=== PATIENT | female | born 1985 | race Caucasian/White ===

== ENCOUNTER → 2017-05-22 10:58 | Outpatient (CLI) | payer OTHER, MEDICAID, SELFPAY ==
[2017-05-22 12:21] LABS: Absolute Lymphocyte Count 1.22 X10^3/ul (0.83-4.51); Basophil# 0.01 X10^3/uL; Basophil% 0.2 % (0-1); Eosinophil# 0.03 X10^3/uL; Eosinophils% 0.7 % (0-5); Hematocrit 38.2 % (37-47); Hemoglobin 13.1 g/dl (12.0-15.0); Lymphocyte # 1.22 X10^3/ul (4.0); Lymphocyte % 26.9 % (19-41); Mean Corp Hgb Conc 34.3 g/gl (32-36); Mean Corpuscular Hgb 27.9 pg (27.0-32.0); Mean Corpuscular Volume 81.3 fL (81-99); Mean Platelet Vol. 10.5 fl (6.2-12.0); Monocyte# 0.28 X10^3/uL; Monocyte% 6.2 % (0-10); Neutrophil # 2.98 X10^3/uL (2.7-7.7); Neutrophil % 65.8 % (47-70); Platelet Count 246 K/mm3 (150-450); RBC Distribution Width CV 13.8 % (11.6-14.6); RBC Distribution Width SD 40.2 fl (35.1-43.9); White Blood Count 4.5 K/mm3 (4.4-11.0)
[2017-05-22 12:24] LABS: POSITIVE COUNT NO; POSITIVE DIFFERENTIAL NO; POSITIVE MORPHOLOGY NO
[2017-05-22 12:46] LABS: ALB/GLOB Ratio 0.7 RATIO (0.9-2.4); AST(SGOT) 17 U/L (15-37); Alanine Aminotransfer ALT/SGPT 28 U/L (13-56); Alkaline Phosphatase 70 U/L (45-117); Anion Gap 9 (5-15); BUN 9 mg/dL (7-18); BUN/Creat Ratio 12.8 RATIO (10-20); Calcium,Total 8.4 mg/dL (8.5-10.1); Chloride 109 mmol/L (98-107); EST Glomerular Filtration Rate 103 mL/min (>60); Est Glom Filt Rate - Afr Amer 124 mL/min (>60); Globulin 4.4 g/dL (2.2-4.2); Glucose 88 mg/dL (70-110); Glucose Challenge Gest 1H 50g 88 mg/dL (70-140); Potassium 3.4 mmol/L (3.5-5.1); Protein, Total 7.4 g/dL (6.4-8.2); Sodium Level 141 mmol/L (136-145); T4 Free Direct 1.13 ng/dL (0.76-1.46); Thyroid Stim Hormone (TSH) 0.58 uIU/mL (0.358-3.74)
[2017-05-22 12:55] LABS: Rubella IgG 62.1 IU/mL
[2017-05-22 22:34] LABS: Chlamydia Trachomatis by PCR Negative (Negative); Neisserai gonorrhoeae by PCR Negative (Negative); Probe Check PASS; Sample Adequacy Control PASS; Specimen Processing Control PASS
[2017-05-23 12:08] LABS: Thyroid Peroxidase AB 12 IU/mL (0-34)
[2017-05-23 16:20] LABS: HEPATITIS B SURFACE AG Negative (Negative); Thyroglobulin Antibody < 1.0 IU/mL (0.0-0.9)
[2017-05-26 03:55] LABS: Rapid Plasmin Reagin (RPR) NONREACTIVE (NONREACTIVE)
== END ==
PROVIDERS: Family Provider Family Medicine; PCP Family Medicine; Visit Provider Obstetrics & Gynecology
DX: O09.291 Supervision of pregnancy with other poor reproductive or obstetric history, first trimester (principal); O99.281 Endocrine, nutritional and metabolic diseases complicating pregnancy, first trimester; E01.0 Iodine-deficiency related diffuse (endemic) goiter; Z3A.00 Weeks of gestation of pregnancy not specified
CPT/HCPCS: 36415; 80053; 82570; 82950; 84156; 84439; 84443; 84481; 85025; 86376; 86592; 86762; 86800; 86850; 86900; 87086; 87088; 87340; 87491; 87591

== ENCOUNTER → 2017-05-23 15:19 | Outpatient (CLI) | payer OTHER, MEDICAID, SELFPAY | PROVIDERS: Family Provider Family Medicine; PCP Family Medicine; Visit Provider Obstetrics & Gynecology | DX: Z12.4 Encounter for screening for malignant neoplasm of cervix (principal) ==

== ENCOUNTER → 2017-06-05 13:27 | Outpatient (CLI) | payer OTHER, MEDICAID, SELFPAY | PROVIDERS: Family Provider Family Medicine; PCP Family Medicine | DX: Z36.82 Encounter for antenatal screening for nuchal translucency (principal) | CPT/HCPCS: 36415 ==

== ENCOUNTER → 2017-06-19 17:57 | Outpatient (CLI) | payer OTHER, MEDICAID, SELFPAY ==
[2017-06-19 18:21] LABS: Protein:Creat Ratio 66 mg/g CRE (0-200)
== END ==
PROVIDERS: Family Provider Family Medicine; PCP Family Medicine; Visit Provider Obstetrics & Gynecology
DX: Z87.59 Personal history of other complications of pregnancy, childbirth and the puerperium (principal)
CPT/HCPCS: 82570; 84156

== ENCOUNTER → 2017-07-17 | Outpatient (CLI) | payer OTHER, MEDICAID, SELFPAY ==
[2017-07-17 14:49] LABS: HIV - WCH Non-Reactive (Nonreactive)
[2017-07-17 21:53] LABS: Protein, Urine (Random) 12.3 mg/dL (<11.9); Protein:Creat Ratio 53 mg/g CRE (0-200)
== END | disposition home or self-care (01) ==
PROVIDERS: Obstetrics & Gynecology; Family Provider Family Medicine; PCP Family Medicine
DX: O16.9 Unspecified maternal hypertension, unspecified trimester (principal)
CPT/HCPCS: 36415; 82570; 84156; 86703

== ENCOUNTER → 2017-07-21 12:02 | Outpatient (CLI) | payer OTHER, MEDICAID, SELFPAY ==
--- NOTE | 2017-07-21 12:03 | US_ITS ---
STUDY: SECOND AND THIRD TRIMESTER OBSTETRICAL ULTRASOUND REASON FOR EXAM: Female, 31 years old. Anatomy screen LMP: TECHNIQUE: Transabdominal PRIOR ULTRASOUND: None. FINDINGS: There is a single intrauterine fetus. The fetus is in a cephalic presentation. There is demonstrated cardiac activity with a heart rate of 142 bpm. There is a normal amniotic fluid volume. The largest amniotic fluid pocket measures 6.1 cm. The placenta is posterior in location and is not low lying. There are Grade 0 placental changes. The cervix measures 59 mm in length. The bilateral adnexal regions are normal. BIOMETRY: BPD: 47mm: 20 weeks, 2 days HC: 175mm: 20 weeks, 1 days AC: 155mm: 20 weeks, 5 days FL: 32mm: 19 weeks, 6 days CI: 79 FL/BPD: 67 FL/HC: FL/AC: 20 HC/AC: 1.13 age by current US: 20 weeks, 2 days. EDITH by current US: 8.15.18. Estimated weight: 340 grams, +/- 50 grams, 67 %. Age by LMP: 19 weeks, 6 days. EDITH by LMP: 8.18.18. ANATOMY: Gender: Male Cranium: Normal lateral ventricles. Normal choroid plexus. Normal cerebellum. Normal cisterna magna. Normal face, nose and lips. Chest: Normal 4-chamber heart. Abdomen/Pelvis: Normal diaphragm. Normal stomach. Normal abdominal wall. Normal cord insertion. Normal 3 vessel cord. Normal kidneys. Normal bladder. Spine: Normal cervical spine. Normal thoracic spine. Normal lumbar spine. Normal sacrum. Extremities: Normal bilateral upper extremities. Normal bilateral lower extremities. US/OB Anatomy Scan IMPRESSION: There is a single live intrauterine with a heart rate of 142 bpm. age by current US: 20 weeks, 2 days. EDITH by current US: 8.15.18. Electronically Signed: Nicolas Hunt MD at 18:26 EDT , Service support ,
== END ==
PROVIDERS: Family Provider Family Medicine; PCP Family Medicine; Visit Provider Obstetrics & Gynecology
DX: O09.291 Supervision of pregnancy with other poor reproductive or obstetric history, first trimester (principal); O99.281 Endocrine, nutritional and metabolic diseases complicating pregnancy, first trimester; E01.0 Iodine-deficiency related diffuse (endemic) goiter; Z3A.00 Weeks of gestation of pregnancy not specified
CPT/HCPCS: 76805

== ENCOUNTER → 2017-08-14 07:28 | Outpatient (CLI) | payer OTHER, MEDICAID, SELFPAY ==
--- NOTE | 2017-08-14 07:29 | US_ITS ---
STUDY: THYROID ULTRASOUND REASON FOR EXAM: Female, 31 years old. Thyromegaly. TECHNIQUE: Ultrasound evaluation of the thyroid was performed with real-time and static enriquez-scale imaging. COMPARISON: None. FINDINGS: RIGHT LOBE: The right lobe of the thyroid gland measures 5.8 x 2.0 x 1.4 cm. There is a homogeneous echotexture. There are 2, isoechoic discrete nodules within the deep substance of the mid to lower right thyroid lobe. These measure 0.5 x 0.5 x 0.7 cm and 0.5 x 0.4 x 0.3 cm. No calcification is identified. LEFT LOBE: The left lobe of the thyroid gland measures 4.8 x 2.3 x 1.4 cm. There is a homogeneous echotexture. There is a 0.5 x 0.5 x 0.3 cm, ovoid, predominantly well-defined nodule demonstrating isoechoic and hypoechoic echotexture within the superficial substance of the mid thyroid lobe. ISTHMUS: The isthmus measures 3.5 mm. . The regional lymph nodes are normal. US/Thyroid IMPRESSION: Diffuse thyromegaly. Consistent with the provided clinical history. Discrete bilateral thyroid nodules all measuring less than 1 cm. Please see above. These nodules are nonspecific by thyroid ultrasound. An aggressive process cannot be excluded on the basis of thyroid sonography. Recommend further evaluation with FNA biopsy if indicated by clinical presentation and thyroid function tests. Electronically Signed: Antoine Waddell MD at 10:09 EDT , Service support ,
== END ==
PROVIDERS: Family Provider Family Medicine; PCP Family Medicine; Visit Provider Nurse Practitioner Women's Health
DX: E01.0 Iodine-deficiency related diffuse (endemic) goiter (principal)
CPT/HCPCS: 76536

== ENCOUNTER → 2017-09-11 10:02 | Outpatient (CLI) | payer OTHER, MEDICAID, SELFPAY ==
[2017-09-11 10:30] LABS: Absolute Lymphocyte Count 1.36 X10^3/ul (0.83-4.51); Absolute Neutrophil Count 5.2 X10^3/uL (2.0-7.7); Basophil# 0.01 X10^3/uL; Basophil% 0.1 % (0-1); Eosinophil# 0.05 X10^3/uL; Eosinophils% 0.7 % (0-5); Hematocrit 35.9 % (37-47); Hemoglobin 11.8 g/dl (12.0-15.0); Lymphocyte # 1.36 X10^3/ul (4.0); Lymphocyte % 19.3 % (19-41); Mean Corp Hgb Conc 32.9 g/gl (32-36); Mean Corpuscular Hgb 27.2 pg (27.0-32.0); Mean Corpuscular Volume 82.7 fL (81-99); Mean Platelet Vol. 10.2 fl (6.2-12.0); Monocyte% 5.7 % (0-10); Neutrophil # 5.21 X10^3/uL (2.7-7.7); Neutrophil % 74.1 % (47-70); Platelet Count 203 K/mm3 (150-450); RBC Distribution Width CV 14.7 % (11.6-14.6); RBC Distribution Width SD 43.7 fl (35.1-43.9); Red Blood Count 4.34 M/mm3 (4.2-5.4)
[2017-09-11 10:31] LABS: POSITIVE COUNT NO; POSITIVE DIFFERENTIAL NO; POSITIVE MORPHOLOGY NO
[2017-09-11 10:54] LABS: Glucose Challenge Gest 1H 50g 83 mg/dL (70-140)
[2017-09-11 11:07] LABS: Thyroid Stim Hormone (TSH) 0.88 uIU/mL (0.358-3.74)
[2017-09-11 12:09] LABS: HIV - WCH Non-Reactive (Nonreactive)
== END ==
PROVIDERS: Internal Medicine; Family Provider Family Medicine; PCP Family Medicine; Visit Provider Obstetrics & Gynecology
DX: O99.281 Endocrine, nutritional and metabolic diseases complicating pregnancy, first trimester (principal); E01.0 Iodine-deficiency related diffuse (endemic) goiter; Z3A.00 Weeks of gestation of pregnancy not specified
CPT/HCPCS: 36415; 82950; 84439; 84443; 85025; 86703

== ENCOUNTER → 2017-11-17 18:02 | Outpatient (CLI) | payer OTHER, MEDICAID, SELFPAY ==
[2017-11-17 19:14] LABS: Group B Strep DNA By PCR POSITIVE (Negative); Probe Check PASS
== END ==
PROVIDERS: Visit Provider Nurse Practitioner Women's Health
DX: Z34.90 Encounter for supervision of normal pregnancy, unspecified, unspecified trimester (principal)
CPT/HCPCS: 87653

== ENCOUNTER 2017-12-08 13:30 | Outpatient (CLI) | payer OTHER, MEDICAID, SELFPAY ==
[2017-12-08 13:50] VITALS: BMI 40.8
[2017-12-08 14:43] LABS: Hemoglobin 11.8 g/dl (12.0-15.0); Mean Corp Hgb Conc 32.8 g/gl (32-36); Mean Corpuscular Hgb 26.3 pg (27.0-32.0); Mean Corpuscular Volume 80.4 fL (81-99); Mean Platelet Vol. 11.4 fl (6.2-12.0); Platelet Count 229 K/mm3 (150-450); RBC Distribution Width CV 16.1 % (11.6-14.6); RBC Distribution Width SD 45.3 fl (35.1-43.9); Red Blood Count 4.48 M/mm3 (4.2-5.4); Scan Indicated on CBC? Y/N NO; White Blood Count 7.5 K/mm3 (4.4-11.0)
[2017-12-08 14:49] LABS: Partial Thromboplast Time 28.6 Seconds (24.1-36.2)
[2017-12-08 14:53] LABS: Protein, Urine (Random) 9.3 mg/dL (<11.9); Protein:Creat Ratio 82 mg/g CRE (0-200)
[2017-12-08 15:02] LABS: AST(SGOT) 17 U/L (15-37); Alanine Aminotransfer ALT/SGPT 16 U/L (13-56); Creatinine, Serum 0.71 mg/dL (0.55-1.02); EST Glomerular Filtration Rate 101 mL/min (>60); Est Glom Filt Rate - Afr Amer 122 mL/min (>60); Estimated Creatinine Clearance 110.62 ml/min; Uric Acid 5.4 mg/dL (2.6-6.0)
--- NOTE | 2017-12-10 03:32 | OB.TRI.NOTE ---
- Problem List (1) Elevated blood pressure affecting in third trimester, antepartum Status: Acute History of Present Illness Date of Service: 12/08/17 Was patient seen by the physician?: Yes Reason For Visit: R/O PREECLAMPSIA Final EDITH: 12/09/17 Final EDITH Source: US <20 weeks Gestational age: 40 Weeks and 1 Days History of Present Illness: elevated bp in office Allergies azithromycin [From Zithromax Z-Hong] Allergy (Verified 12/08/17 13:53) Other facial swelling and itching raspberry Allergy (Verified 12/08/17 13:53) Other bloody nose other Allergy (Uncoded 12/08/17 13:53) Hives bug bites - localized hives - Pertinent Past Medical History Medical History: Past Medical History (Last Reviewed 12/08/17 @ 13:11 by Nasra Borjas) Depression (Chronic) Arthritis History of abnormal cervical Pap smear Seasonal allergies (Resolved) NST - FHR Rate Baby A Baseline: 120 Variability:: Moderate Accelerations:: 15 x 15 Decelerations:: None NST Reactive:: Yes FHR Category:: Category I Uterine Activity:: irregular ctx Impression/Plan elevated bp in office- repeats WNL. patient asymptomatic, normal labs and negative proteinuria. recommend exp management, fu in office on monday. preeclampsia precautions reviewed
== END 2017-12-08 15:20 | disposition home or self-care (01) ==
LOC: WPOUT 13:35 → WP 13:36
PROVIDERS: Family Provider Family Medicine; PCP Family Medicine; Visit Provider Obstetrics & Gynecology
DX: O99.89 Other specified diseases and conditions complicating pregnancy, childbirth and the puerperium (principal); R03.0 Elevated blood-pressure reading, without diagnosis of hypertension; M19.90 Unspecified osteoarthritis, unspecified site; Z3A.40 40 weeks gestation of pregnancy
CPT/HCPCS: 36415; 59025; 59050; 82565; 82570; 84156; 84450; 84460; 84550; 85027; 85610; 85730; 99218; G0378

== ENCOUNTER 2017-12-15 18:08 | Inpatient (IN) | payer OTHER, MEDICAID, SELFPAY ==
[2017-12-15 13:54] VITALS: BMI 41.3
[2017-12-15 14:46] LABS: Hematocrit 35.7 % (37-47); Hemoglobin 11.8 g/dl (12.0-15.0); Mean Corp Hgb Conc 33.1 g/gl (32-36); Mean Corpuscular Hgb 26.7 pg (27.0-32.0); Mean Corpuscular Volume 80.8 fL (81-99); Mean Platelet Vol. 11.3 fl (6.2-12.0); Platelet Count 246 K/mm3 (150-450); RBC Distribution Width CV 16.4 % (11.6-14.6); RBC Distribution Width SD 47.2 fl (35.1-43.9); Red Blood Count 4.42 M/mm3 (4.2-5.4); White Blood Count 7.7 K/mm3 (4.4-11.0)
[2017-12-15 14:48] LABS: Scan Indicated on CBC? Y/N NO
[2017-12-15 14:54] LABS: Partial Thromboplast Time 27.5 Seconds (24.1-36.2); Prothrombin Time (Protime)PT. 12.8 SECONDS (11.7-14.9)
[2017-12-15 14:58] LABS: AST(SGOT) 16 U/L (15-37); Alanine Aminotransfer ALT/SGPT 16 U/L (13-56); Creatinine, Serum 0.68 mg/dL (0.55-1.02); EST Glomerular Filtration Rate 106 mL/min (>60); Est Glom Filt Rate - Afr Amer 128 mL/min (>60); Uric Acid 5.5 mg/dL (2.6-6.0)
[2017-12-15 17:06] LABS: Protein, Urine (Random) 7.3 mg/dL (<11.9); Protein:Creat Ratio 66 mg/g CRE (0-200)
[2017-12-15] MEDS: miSOPROStol 25 MCG TABLET PO ×2 (19:55→23:55)
[2017-12-16] MEDS: 0.9% Saline Lock 10 ML Syringe IV (00:47)
[2017-12-16] MEDS: Nalbuphine 10 MG/ML Ampul IV ×2 (00:47→04:05)
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
[2017-12-16] MEDS: Lactated Ringers 1,000 ML 50 ML IV ×3 (03:58→12:34)
[2017-12-16] MEDS: Oxytocin 30 units/NS 500 ml 30 UNITS/500 ML IV.SOLN IV (04:00)
[2017-12-16] MEDS: Ondansetron 4 MG/2 ML Vial IV (08:50)
[2017-12-16] MEDS: fentaNYL-bupivacaine (epidural) 100 ML BAG EPIDURAL ×2 (10:37→14:57)
[2017-12-16] MEDS: proMETHazine 25 MG/ML Syringe IV (14:57)
[2017-12-16] MEDS: Oxytocin 30 units/NS 500 ml 30 UNITS/500 ML IV.SOLN 334 UNITS IV (16:45)
--- NOTE | 2017-12-16 16:59 | PCM.OB.VAG ---
- Problem List (1) Elevated blood pressure affecting in third trimester, antepartum Status: Acute (2) GBS (group B Streptococcus carrier), +RV culture, currently Status: Acute (3) Depression Status: Chronic Qualifiers: (4) Fibroids, intramural Status: Acute Comment: follow (5) History of gestational hypertension Status: Acute Comment: 81 mg asa daily, baseline labs checked (6) Anxiety during , antepartum Status: Acute Comment: celexa, counseling (7) Obesity affecting Status: Acute Qualifiers: Comment: 1 trimester glucola (8) Thyromegaly Status: Acute (9) screening encounter Status: Acute Comment: NT normal on 06/05/17 Follow up testing to be done 06/23/17-07/07/17 Negative screening- results received 07/21/17 (10) Supervision of normal Status: Acute Qualifiers: Comment: PRR EDITH 12/09/17 jordyn Lala PARAMJIT Mane Turner karlos Vaginal Delivery Maternal Presentation: Medically Indicated Induction iol ghtn Method of Induction: Pitocin, Cytotec Medical Reason for Induction: Gestational Hypertension Amniotic Membrane Rupture Type: Spontaneous Amniotic Fluid Description: Clear Final EDITH: 12/11/17 Gestational age: 40 Weeks and 5 Days Date of Procedure: 12/16/17 Pre-Operative Diagnosis: iol ghtn Post-Operative Diagnosis: same Surgery/ Procedure Performed: Spontaneous Vaginal Delivery Type of Anesthesia: Epidural Description of Procedure: Patient began pushing and delivered the head in the MIRACLE presentation. The head was delivered atraumatically. The anterior and posterior shoulders delivered without complication followed by the rest of the infant and the was placed on the maternal abdomen. Delayed cord clamping was employed for approximately 60 seconds. Cord was clamped and cut and gentle traction was applied to the cord and the placenta delivered spontaneously immediately following it was noted to be intact with three-vessel cord. The perineum and vagina were inspected and noted to have no laceration. EBL was 200 cc. Patient and infant tolerated delivery well. Presentation: MIRACLE Placental Delivery Description: Spontaneous Cord Vessel Description: 3 Vessels Cord Entanglement: None Estimated Blood Loss: 200 Infant A gender: Male Episiotomy Description: None Laceration: None Medications given after delivery: IV Pitocin Complications: None
[2017-12-16] MEDS: Oxytocin 30 units/NS 500 ml 30 UNITS/500 ML IV.SOLN 167 UNITS IV (17:04)
[2017-12-16] MEDS: Ketorolac 10 MG Tablet PO (20:48)
[2017-12-16 20:50] VITALS: BP 141/77; PULSE 88; RESP 16; TEMP 37
[2017-12-17 00:15] VITALS: BP 121/60; PULSE 64; RESP 16; TEMP 36.8
[2017-12-17 04:00] VITALS: BP 129/71; PULSE 68; RESP 16; TEMP 36.1
[2017-12-17 09:01] VITALS: BP 137/73; PULSE 69; RESP 18; TEMP 36.2
--- NOTE | 2017-12-17 09:09 | NURSING ---
Mother handles baby appropriately. PHQ2 assessment done. Pt denies any symptoms of depression but stated she has been on both Celexa and Wellbutrin in the past. States family currently in counseling related to their 7 year old child who has behavior issues.
--- NOTE | 2017-12-17 10:39 | PCM.PN.OB ---
Subjective: doing well pain controlled no CP SOB N V no blurry vision no headaches. some increased swelling - Physical Exam General: Alert, Oriented x3 Vital Signs Temp Pulse Resp BP 97.2 F L 69 18 137/73 H 12/17/17 09:01 12/17/17 09:01 12/17/17 09:01 12/17/17 09:01 Oxygen Delivery Method Room Air Weight: 263 lb 14.293 oz Body Mass Index (BMI) 41.3 Intake and Output for Last 24 Hours 12/15/17 12/16/17 12/17/17 23:59 23:59 23:59 Intake Total 3551 / 3551 Output Total 2200 / 2200 Balance 1351 / 1351 Medical Necessity - Tobacco Use Smoking Status: Former smoker Assessment/Plan All Active Problems (Last Reviewed 12/15/17 @ 12:59 by Nasra Borjas) Elevated blood pressure affecting in third trimester, antepartum (Acute) GBS (group B Streptococcus carrier), +RV culture, currently (Acute) Fibroids, intramural (Acute) History of gestational hypertension (Acute) Anxiety during , antepartum (Acute) Obesity affecting (Acute) Thyromegaly (Acute) screening encounter (Acute) Supervision of normal (Acute) IGTN (ingrowing toe nail) (Resolved) Nasal congestion with rhinorrhea (Resolved) Seasonal allergies (Resolved) s/p PPD # 1 1. routine post delivery care 2. breast feeding- support given 3. rh positive 4. rubella immune GHTN- monitor bps. WNL
[2017-12-17 12:00] VITALS: BP 125/65; PULSE 81; RESP 18; TEMP 36.2
[2017-12-17 14:00] VITALS: BP 142/91; PULSE 78; RESP 18; TEMP 36.4
[2017-12-17] MEDS: Ketorolac 10 MG Tablet PO (18:03)
[2017-12-17 19:55] VITALS: BP 138/80; PULSE 83; RESP 16; TEMP 36.6
[2017-12-18 01:55] VITALS: BP 130/78; PULSE 69; RESP 16; TEMP 36.2
[2017-12-18 07:49] VITALS: BP 118/71; PULSE 70; RESP 18; TEMP 36.3; O2SAT 95
--- NOTE | 2017-12-18 08:04 | PCM.PN.OB ---
Subjective: Doing well. Pain controlled. No CP, SOB - Physical Exam General: Alert, Oriented x3 Abdomen: Soft, Non Tender, - - FF below US Vital Signs Temp Pulse Resp BP 97.2 F L 69 16 130/78 H 12/18/17 01:55 12/18/17 01:55 12/18/17 01:55 12/18/17 01:55 Oxygen Delivery Method Room Air Weight: 263 lb 14.293 oz Body Mass Index (BMI) 41.3 Intake and Output for Last 24 Hours 12/16/17 12/17/17 12/18/17 23:59 23:59 23:59 Intake Total 3551 / 3551 Output Total 2200 / 2200 Balance 1351 / 1351 Medical Necessity - Tobacco Use Smoking Status: Former smoker Assessment/Plan All Active Problems (Last Reviewed 12/15/17 @ 12:59 by Nasra Borjas) Elevated blood pressure affecting in third trimester, antepartum (Acute) GBS (group B Streptococcus carrier), +RV culture, currently (Acute) Fibroids, intramural (Acute) History of gestational hypertension (Acute) Anxiety during , antepartum (Acute) Obesity affecting (Acute) Thyromegaly (Acute) screening encounter (Acute) Supervision of normal (Acute) IGTN (ingrowing toe nail) (Resolved) Nasal congestion with rhinorrhea (Resolved) Seasonal allergies (Resolved) Routine care. Home today.
--- NOTE | 2017-12-18 08:09 | PCM.DCVAG ---
Additional Instructions: If you experience any of the following, contact your healthcare provider. Bleeding that soaks a pad every hour for 2 hours Fever 100.4 or higher Unrelieved incision or abdominal pain Swelling, redness, discharge or bleeding from your incision or episiotomy site Your incision begins to separate Problems urinating (including inability to urinate or burning while urinating). Visual changes Severe headache Flu-like symptoms Pain or redness in one of both of your breasts Pain, warmth, tenderness or swelling in your legs, especially the calf area Frequent nausea and vomiting Symptoms of depression or anxiety If you experience any of the following, call 911 or go to the nearest Emergency Room. Chest pain Problems breathing Seizure activity Partial or complete paralysis of a body part, slurred speech, weakness or drooping of the face, or a sudden inability to walk or hold your balance Allergies/Adverse Reactions: Allergies azithromycin [From Zithromax Z-Hong] Allergy (Verified 12/15/17 13:00) Other facial swelling and itching raspberry Allergy (Verified 12/15/17 13:00) Other bloody nose other Allergy (Uncoded 12/08/17 13:53) Hives bug bites - localized hives Medications to take at Discharge aspirin 81 mg tablet,delayed release 81 mg PO QDAY 09/01/17 Primary Care Physician: Neeraj Whitley III, MD [Primary Care Provider] - Test Results: Test results from this visit will be discussed in further detail at your follow-up appointment, if applicable.
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
== END 2017-12-18 11:20 | disposition home or self-care (01) | DRG 775 ==
LOC: WP 18:10
PROVIDERS: Admitting Provider Obstetrics & Gynecology; Family Provider Family Medicine; PCP Family Medicine; Visit Provider Obstetrics & Gynecology
DX: O13.3 Gestational [pregnancy-induced] hypertension without significant proteinuria, third trimester (principal); Z68.41 Body mass index [BMI] 40.0-44.9, adult; O42.02 Full-term premature rupture of membranes, onset of labor within 24 hours of rupture; O99.824 Streptococcus B carrier state complicating childbirth; O99.214 Obesity complicating childbirth; E66.9 Obesity, unspecified; O34.13 Maternal care for benign tumor of corpus uteri, third trimester; D25.1 Intramural leiomyoma of uterus; O99.284 Endocrine, nutritional and metabolic diseases complicating childbirth; E01.0 Iodine-deficiency related diffuse (endemic) goiter; O99.343 Other mental disorders complicating pregnancy, third trimester; F32.9 Major depressive disorder, single episode, unspecified; F41.9 Anxiety disorder, unspecified; Z79.82 Long term (current) use of aspirin; Z87.891 Personal history of nicotine dependence; Z3A.40 40 weeks gestation of pregnancy; Z37.0 Single live birth
CPT/HCPCS: 36415; 59025; 59050; 82565; 82570; 84156; 84450; 84460; 84550; 85027; 85610; 85730; 86850; 86900; 99218; J7120; A4216; G0378; J2405

== ENCOUNTER → 2018-01-26 10:15 | Outpatient (CLI) | payer OTHER, MEDICAID, SELFPAY ==
--- NOTE | 2018-01-26 11:25 | US_ITS ---
STUDY: THYROID ULTRASOUND REASON FOR EXAM: Female, 32 years old. Follow-up ultrasound thyroid of 08/14/2017. Enlargement of the thyroid gland. Thyroid nodules. TECHNIQUE: Ultrasound evaluation of the thyroid was performed with real-time and static enriquez-scale imaging. COMPARISON: None. FINDINGS: RIGHT LOBE: The right thyroid gland measures 54 x 22 x 16 mm. Background echotexture is homogeneous. In the upper and lower pole, small circumscribed oval hypoechoic nodules are present measuring 3 x 4 x 2 mm and 4 x 4 x 5 mm respectively. These are unchanged. Vascularity of the gland is normal. LEFT LOBE: The left thyroid measures 48 x 19 x 14 mm. Back and echotexture is homogeneous. Vascularity is normal. There is a 5 x 5 x 3 mm mid polar solid nodule unchanged compared to prior imaging. ISTHMUS: The isthmus measures 4 mm, normal echotexture . US/Thyroid IMPRESSION: Tiny thyroid nodules. Long-term surveillance imaging would be appropriate. Initial follow-up in approximately one year would be appropriate. If stability is demonstrated at that time, the interval for follow-up can be extended over a longer period of time. Mildly enlarged thyroid gland bilaterally, nonspecific. There are no underlying features of thyroiditis, acute or chronic. Electronically Signed: Kp Rader, at 10:10 EDT Tel , Service support ,
[2018-01-26 11:38] LABS: T4 Free Direct 0.96 ng/dL (0.76-1.46); Thyroid Stim Hormone (TSH) 0.91 uIU/mL (0.358-3.74)
== END ==
PROVIDERS: Family Provider Internal Medicine; PCP Internal Medicine; Referring Provider Surgery; Visit Provider Surgery
DX: E01.0 Iodine-deficiency related diffuse (endemic) goiter (principal); E04.1 Nontoxic single thyroid nodule
CPT/HCPCS: 36415; 76536; 84439; 84443